=== PATIENT | female | born 1985 | race Caucasian/White ===

== ENCOUNTER 2016-10-07 14:24 | Emergency (ER) | payer BC ==
[~2016-10-07] VITALS: Ht 160 cm; Wt 151.2 kg
[~2016-10-07 14:24] MED LIST: AFRIN,GENASAL D15 ML BOTH NARES; AMOXICILLIN500 M1 PO; ANTIVERT25 MG PO; APRI1 EACH PO; CALCIPOTRIENE-B60 GM TP; CALCIUM 500 MG1 EACH PO; CLEOCIN150 MG PO; CLOBETASOL 0.05% TP; CLOBETASOL PROP50 ML TP; CLOBETASOL TP; DEXILANT60 MG PO; ERGOCALCIF50000 UNIT PO; FLEXERIL10 MG PO; INVanz IV; KEFLEX500 MG PO; LEVAQUIN500 MG PO; LISINOPRIL20 MG PO; LORTAB 5-325 M1 EACH PO; METOPROLOL TART25 MG PO; MOBIC15 MG PO; NAPROSYN500 MG PO; OTEZLA30 MG PO; PRILOSEC20 MG PO; PROAIR HFA8.5 GM IH; RECLIPSEN1 EACH PO; ROBITUSSIN DAC PO; ULTRAM50 MG PO; VITAMIN D2000 UNI1 PO; [UNRECOGNIZED DRUG - OTHER] PO; oxyCODONE PO
[2016-10-07 18:35] VITALS: BP 150/89
== END 2016-10-07 18:35 | disposition home or self-care (01) ==
LOC: EME 14:24
DX: R20.0 Anesthesia of skin (principal); R20.2 Paresthesia of skin; R41.9 Unspecified symptoms and signs involving cognitive functions and awareness; Z87.891 Personal history of nicotine dependence; I10 Essential (primary) hypertension; K21.9 Gastro-esophageal reflux disease without esophagitis
CPT/HCPCS: 71020; 99281; 99285

== ENCOUNTER 2016-12-27 19:29 | Emergency (ER) | payer BC ==
[~2016-12-27] VITALS: Ht 160 cm; Wt 155.0 kg
[2016-12-27] MEDS ORDERED: KEFLEX500 MG PO (21:23)
[2016-12-27 21:56] VITALS: BP 130/95
== END 2016-12-27 21:56 | disposition home or self-care (01) ==
LOC: EME 19:29
DX: L03.115 Cellulitis of right lower limb (principal); L40.9 Psoriasis, unspecified; I10 Essential (primary) hypertension; Z87.891 Personal history of nicotine dependence
CPT/HCPCS: 93971; 99281; 99284

== ENCOUNTER 2017-03-28 19:17 | Emergency (ER) | payer BC ==
[~2017-03-28] VITALS: Ht 160 cm; Wt 158.3 kg
[2017-03-28] MEDS ORDERED: FLEXERIL10 MG PO (23:01)
[2017-03-28] MEDS ORDERED: NAPROSYN500 MG PO (23:01)
[2017-03-28 23:18] VITALS: BP 161/88
== END 2017-03-28 23:20 | disposition home or self-care (01) ==
LOC: RME 19:17 → EME 19:17 → RME 23:20
DX: M17.11 Unilateral primary osteoarthritis, right knee (principal); I10 Essential (primary) hypertension; K21.9 Gastro-esophageal reflux disease without esophagitis; Z87.891 Personal history of nicotine dependence
CPT/HCPCS: 71020; 73564; 93971; 99281; 99283

== ENCOUNTER → 2018-02-03 | Outpatient (CLI) | payer BC | END | disposition home or self-care (01) | LOC: RES 08:46 | DX: R94.2 Abnormal results of pulmonary function studies (principal) | CPT/HCPCS: 94070; 94726; 94729 ==

== ENCOUNTER 2018-02-20 21:25 | Emergency (ER) | payer BC ==
[~2018-02-20] VITALS: Ht 160 cm; Wt 163.0 kg
[2018-02-20] MEDS ORDERED: FLEXERIL10 MG PO (23:44)
[2018-02-20] MEDS ORDERED: PERCOCET 5/31 TABLET PO (23:44)
[2018-02-20] MEDS ORDERED: MOTRIN400 MG PO (23:44)
[2018-02-21 00:01] VITALS: BP 161/93
== END 2018-02-21 00:13 | disposition home or self-care (01) ==
LOC: EME 21:25
DX: R60.0 Localized edema (principal); M54.31 Sciatica, right side; I10 Essential (primary) hypertension; Z87.891 Personal history of nicotine dependence
CPT/HCPCS: 93971; 99281; 99285